=== PATIENT | female | born 1985 | race Caucasian/White ===

== ENCOUNTER 2017-07-10 07:01 | Day surgery (SDC) | payer OTHER ==
--- NOTE | 2017-07-10 07:43 | PCM.PREANE ---
Preanesthetic Assessment - Anesthesia/Transfusion/Family Hx Anesthesia History: Prior Anesthesia Without Reaction Family History of Anesthesia Reaction: No Transfusion History: No Prior Transfusion(s) - Review of Systems General: No Symptoms Pulmonary: No Symptoms Cardiovascular: No Symptoms Gastrointestinal: No Symptoms Neurological: No Symptoms Other: Reports: None - Physical Assessment NPO Status Date: 07/09/17 Height: 1.77 m Weight: 89.358 kg ASA Class: 2 Mental Status: Alert & Oriented x3 Airway Class: Mallampati = 2 Dentition: Reports: Normal Dentition ROM/Head Extension: Full Lungs: Clear to Auscultation, Normal Respiratory Effort Cardiovascular: Regular Rate, Regular Rhythm - Lab Values: Laboratory Last Values WBC 9.57 K/uL (4.0-11.0) 07/09/17 12:43 RBC 4.23 M/uL (4.30-5.90) L 07/09/17 12:43 Hgb 13.1 g/dL (12.0-16.0) 07/09/17 12:43 Hct 37.7 % (36.0-46.0) 07/09/17 12:43 MCV 89.1 fL (80.0-98.0) 07/09/17 12:43 MCH 31.0 pg (27.0-32.0) 07/09/17 12:43 MCHC 34.7 g/dL (31.0-37.0) 07/09/17 12:43 RDW Std Deviation 40.9 fl (28.0-62.0) 07/09/17 12:43 RDW Coeff of Noe 13 % (11.0-15.0) 07/09/17 12:43 Plt Count 231 K/uL (150-400) 07/09/17 12:43 MPV 10.40 fL (7.40-12.00) 07/09/17 12:43 Nucleated RBC % 0.0 /100WBC 07/09/17 12:43 Nucleated RBCs # 0 K/uL 07/09/17 12:43 HCG, Qual NEGATIVE (NEG) 07/09/17 12:43 - Allergies Allergies/Adverse Reactions: Allergies Allergy/AdvReac Type Severity Reaction Status Date / Time No Known Allergies Allergy Verified 07/03/17 11:33 - Anesthesia Plan Pre-Op Medication Ordered: None - Acknowledgements Anesthesia Type Planned: MAC Pt an Appropriate Candidate for the Planned Anesthesia: Yes Alternatives and Risks of Anesthesia Discussed w Pt/Guardian: Yes Pt/Guardian Understands and Agrees with Anesthesia Plan: Yes PreAnesthesia Questionnaire HEENT History: Reports: Other (See Below) Other HEENT History: wears glasses/contacts Cardiovascular History: Reports: Arrhythmia Other Cardiovascular History: 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 Respiratory History: Reports: None Gastrointestinal History: Reports: None Genitourinary History: Reports: None 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 Musculoskeletal History: Reports: None Neurological History: Reports: None Psychiatric History: Reports: None Endocrine/Metabolic History: Reports: Vitamin D Deficiency Hematologic History: Reports: B12 Deficiency Immunologic History: Reports: None Oncologic (Cancer) History: Reports: None Dermatologic History: Reports: None - Past Surgical History GI Surgical History: Reports: Colonoscopy Female Surgical History: Reports: D&C - SUBSTANCE USE Smoking Status *Q: Current Every Day Smoker Tobacco Use Within Last Twelve Months: Cigarettes Recreational Drug Use History: No - HOME MEDS Home Medications: Home Meds Cyanocobalamin (Vitamin B-12) [B-12 Compliance] 1 ml IM ASDIRECTED 07/16/15 [ History] Ergocalciferol (Vitamin D2) [Vitamin D2] 1 cap PO ASDIRECTED 07/16/15 [History] Desogestrel/Ethinyl Estradiol [Apri] 1 tab PO DAILY 07/03/17 [History]
[2017-07-10] MEDS ORDERED: fentaNYL 100 MCG/2 ML SDV ONE ×2 (08:04→08:51)
[2017-07-10] MEDS ORDERED: diphenhydrAMINE 50 MG/ML SDV ONE (08:04)
[2017-07-10] MEDS ORDERED: Dexamethasone 4 MG/ML 5 ML MDV ONE (08:04)
[2017-07-10] MEDS ORDERED: Midazolam 1 MG/ML 2 ML SDV ONE (08:04)
[2017-07-10] MEDS ORDERED: Ondansetron 4 MG/2 ML SDV ONE (08:04)
[2017-07-10] MEDS ORDERED: Propofol 200 MG/20 ML SDV ONE ×2 (08:04→08:55)
[2017-07-10] MEDS ORDERED: Lactated Ringers 1,000 ML IV SCH (08:15)
[2017-07-10] MEDS ORDERED: Ketorolac 30 MG/ML SDV ONE (08:54)
--- NOTE | 2017-07-10 10:26 | PCM.OPNOTE ---
- General Post-Op/Procedure Note Date of Surgery/Procedure: 07/10/17 Operative Procedure(s): LEEP Findings: Transformation entirely seen, mild acetowhite changes. Pre Op Diagnosis: JAJA II Post-Op Diagnosis: Same Anesthesia Technique: MAC Primary Surgeon: Aga Ocasio Anesthesia Provider: Tirso Ramirez [employer] Supervisor: Mariza Castanon Pathology: ectocervix labeled at 12 o'clock, endocervix labeled at 12 o'clock. Fluid Replacement, Intraop: 1,000 EBL in mLs: 20 Complications: None Known. Condition: Good Free Text/Narrative:: Intake & Output 07/09/17 07/10/17 07/10/17 22:59 06:59 14:59 Intake Total 1100 Balance 1100
--- NOTE | 2017-07-10 10:29 | PCM48HPAN ---
Post Anesthesia Note - EVALUATION WITHIN 48HRS OF ANESTHETIC Vital Signs in Normal Range: Yes Patient Participated in Evaluation: Yes Respiratory Function Stable: Yes Airway Patent: Yes Cardiovascular Function Stable: Yes Hydration Status Stable: Yes Pain Control Satisfactory: Yes Nausea and Vomiting Control Satisfactory: Yes Mental Status Recovered: Yes Resp Rate: 18 - COMMENTS/OBSERVATIONS Free Text/Narrative:: no anesthesia problems
[2017-07-10 13:31] VITALS: BP 116/72
--- NOTE | 2017-07-10 17:17 | OR ---
SURGEON: Aga Ocasio M.D. DATE OF PROCEDURE: 07/10/2017 PREOPERATIVE DIAGNOSIS: Cervical intraepithelial neoplasia II. POSTOPERATIVE DIAGNOSIS: Cervical intraepithelial neoplasia II. PROCEDURE: Loop electrode excisional procedure. ANESTHESIA: Cervical block with monitored anesthetic care. ESTIMATED BLOOD LOSS: 20 mL. FLUIDS: 1000 mL crystalloid. FINDINGS: Entire transformation zone was visualized under colposcopy examination. There was mild diffuse acetowhite epithelium. Extensive amount of nabothian cysts and mucus. COMPLICATION: None known. DISPOSITION: Stable to recovery. BRIEF HISTORY: This is a 31-year-old female she presents with an abnormal Pap. Colposcopy in the clinic was performed with findings as JAJA II on cervical biopsy. She was scheduled for loop electrode excisional procedure with risks discussed including bleeding, infection, and weakening of the cervix which could cause cervical incompetence or miscarriage in the future. Understanding these risks, she does desire to proceed. DESCRIPTION OF PROCEDURE: With the patient in dorsal lithotomy position, under adequate IV sedation, the insulated speculum was placed into the vagina and the cervix was examined, treated with dilute acetic acid and examined with the colposcope. Once this was complete, the cervix was then treated with Lugol solution to identify the nonstaining area. A vaginal sidewall retractor was placed with an insulated sidewall retractor and the cervix was grasped with an insulated tenaculum with a setting of 40 pure-cut. The loop electrode was utilized to excise the exocervix which was labeled at 1 o'clock with 0 Polysorb and a smaller loop electrode was utilized to excise a small portion of the endocervix and labeled at 12 o'clock. The base was then cauterized with a ball cautery setting of 60 coag. Monsel's solution was applied. The tenaculum was removed. The tenaculum sites were cauterized. The instruments removed from the vagina. The cervix was hemostatic. Final sponge, needle, and instrument counts were reported as correct. There were no known complications. The patient was transferred to recovery in good condition. WAYNE CONNELL /[id number]
== END 2017-07-10 10:40 | disposition home or self-care (01) ==
LOC: MW.SDS 07:01
PROVIDERS: ATTEND Obstetrics & Gynecology
DX: N87.1 Moderate cervical dysplasia (principal); F17.210 Nicotine dependence, cigarettes, uncomplicated; E55.9 Vitamin D deficiency, unspecified; E53.8 Deficiency of other specified B group vitamins; Z79.890 Hormone replacement therapy
CPT/HCPCS: 36415; 57460; 84703; 85027; J1100; J1200; J1885; J2250; J2405; J3010; J7120; 00940; 88307; J2704

== ENCOUNTER 2017-11-23 20:05 | Emergency (ER) | payer OTHER ==
[2017-11-23] MEDS ORDERED: Diphtheria,Pertussis(Acell),Tetanus Vaccine 0.5 ML Syringe IM ONE (20:17)
[2017-11-23] MEDS ORDERED: Lidocaine 1% 20 ML MDV INJECT ONE (20:17)
[2017-11-23] MEDS ORDERED: Lidocaine/EPINEPHrine/Tetracaine Soln 1 ML TOP ONE (20:17)
[2017-11-23] MEDS ORDERED: Acetaminophen/HYDROcodone 325-5 MG Tab PO ONE (20:17)
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
[2017-11-23] MEDS ORDERED: Lidocaine 1% with EPINEPHrine 1:100,000 20 ML MDV ONE (21:38)
[2017-11-23] MEDS ORDERED: Ondansetron 4 MG Tab.DIS PO ONE (21:58)
[2017-11-23] MEDS ORDERED: Bacitracin Oint 1 GM U/D Packet ONE (22:44)
[2017-11-24 01:01] VITALS: BP 134/78
--- NOTE | 2017-11-26 14:21 | CT ---
EXAM DATE: 11/23/17 PATIENT'S AGE: 32 Patient: GREGORIA CHOW Facility: [place], [place] Site . Site : 1985 Study: CT Head [id number]/13/2018 9:18:30 PM Ordering Physician: Doctor Baird Final Report: INDICATION: Fall. TECHNIQUE: CT head without contrast. COMPARISON: None FINDINGS: CSF spaces: Within normal limits for age. Brain parenchyma: The rucker-white differentiation is normal. No sign of mass, hemorrhage, or midline shift. Skull base and calvarium: The visualized paranasal sinuses and mastoid air cells demonstrate no acute or significant findings. The visualized orbits are grossly unremarkable. No skull fractures. IMPRESSION: Unremarkable noncontrast head CT. Dictated by King Mejia MD @ 11/23/2017 9:26:19 PM Please note that all CT scans at this facility use dose modulation, iterative reconstruction, and/or weight-based dosing when appropriate to reduce radiation dose to as low as reasonably achievable. Dictated by: King Mejia MD @ 11/23/2017 21:26:26 (Electronic Signature) Report Signed by Proxy. [facility] HOSPITALKerri
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
== END 2017-11-23 22:15 | disposition home or self-care (01) ==
LOC: MW.ED 20:05
DX: S81.012A Laceration without foreign body, left knee, initial encounter (principal); S60.812A Abrasion of left wrist, initial encounter; S00.81XA Abrasion of other part of head, initial encounter; S80.212A Abrasion, left knee, initial encounter; Z23 Encounter for immunization; W22.8XXA Striking against or struck by other objects, initial encounter
CPT/HCPCS: 12001; 70450; 73100; 73562; 90471; 90715; 99284; A9270

== ENCOUNTER 2017-12-03 17:41 | Emergency (ER) | payer OTHER ==
[2017-12-03 18:21] VITALS: BP 133/83
== END 2017-12-03 18:48 | disposition home or self-care (01) ==
LOC: MW.ED 17:41
DX: Z53.21 Procedure and treatment not carried out due to patient leaving prior to being seen by health care provider (principal)

== ENCOUNTER 2018-12-04 09:33 | Emergency (ER) | payer OTHER ==
[2018-12-04] MEDS ORDERED: Ketorolac 30 MG/ML SDV IM ONE (10:02)
--- NOTE | 2018-12-04 10:40 | EDM.PDOC ---
<Paulino Felder - Last Filed: 12/04/18 12:33> ED HPI GENERAL MEDICAL PROBLEM - General Chief Complaint: ASSESSMENT SPECIALIST Problem Stated Complaint: PELVIC PAIN Time Seen by Provider: 12/04/18 10:30 - History of Present Illness INITIAL COMMENTS - FREE TEXT/NARRATIVE: I've seen and examined the patient and agree with the above No fever nausea vomiting chills sweats no chest pain shortness breath headache dizziness palpitation no bowel or urine symptoms Therapeutics Tramadol follow-up with gynecology Impression Endometriosis Definitive disposition and diagnosis pending reevaluation and review of above - Related Data Allergies Allergy/AdvReac Type Severity Reaction Status Date / Time No Known Allergies Allergy Verified 12/04/18 09:44 Home Meds: Home Meds Control 11/23/17 [History] Course - Vital Signs Last Recorded V/S: Last Vital Signs Temp 36.1 C 12/04/18 12:45 Pulse 68 12/04/18 12:45 Resp 18 12/04/18 12:45 BP 120/77 12/04/18 12:45 Pulse Ox 99 12/04/18 12:45 - Orders/Labs/Meds Labs: Laboratory Tests 12/04/18 12/04/18 12/04/18 Range/Units 10:20 10:20 10:30 WBC 8.88 (4.0-11.0) K/uL RBC 4.11 L (4.30-5.90) M/uL Hgb 12.8 (12.0-16.0) g/dL Hct 38.0 (36.0-46.0) % MCV 92.5 (80.0-98.0) fL MCH 31.1 (27.0-32.0) pg MCHC 33.7 (31.0-37.0) g/dL RDW Std Deviation 43.4 (28.0-62.0) fl RDW Coeff of Noe 13 (11.0-15.0) % Plt Count 250 (150-400) K/uL MPV 10.70 (7.40-12.00) fL Neut % (Auto) 64.5 (48.0-80.0) % Lymph % (Auto) 29.1 (16.0-40.0) % Wells % (Auto) 5.3 (0.0-15.0) % Eos % (Auto) 1.0 (0.0-7.0) % Baso % (Auto) 0.1 (0.0-1.5) % Neut # (Auto) 5.7 (1.4-5.7) K/uL Lymph # (Auto) 2.6 H (0.6-2.4) K/uL Wells # (Auto) 0.5 (0.0-0.8) K/uL Eos # (Auto) 0.1 (0.0-0.7) K/uL Baso # (Auto) 0.0 (0.0-0.1) K/uL Nucleated RBC % 0.0 /100WBC Nucleated RBCs # 0 K/uL Sodium 138 (136-145) mmol/L Potassium 3.9 (3.5-5.1) mmol/L Chloride 106 (98-107) mmol/L Carbon Dioxide 20.8 L (21.0-32.0) mmol/L BUN 13 (7.0-18.0) mg/dL Creatinine 0.9 (0.6-1.0) mg/dL Est Cr Clr Drug Dosing 97.94 mL/min Estimated GFR (MDRD) > 60.0 ml/min Glucose 99 (74-106) mg/dL Calcium 8.9 (8.5-10.1) mg/dL Total Bilirubin 0.3 (0.2-1.0) mg/dL AST 15 (15-37) IU/L ALT 15 (14-63) IU/L Alkaline Phosphatase 37 L (46-116) U/L Total Protein 6.9 (6.4-8.2) g/dL Albumin 3.7 (3.4-5.0) g/dL Globulin 3.2 (2.6-4.0) g/dL Albumin/Globulin Ratio 1.2 (0.9-1.6) Urine Color YELLOW Urine Appearance CLEAR Urine pH 6.5 (5.0-8.0) Ur Specific [place] 1.015 (1.001-1.035) Urine Protein NEGATIVE (NEGATIVE) mg/dL Urine Glucose (UA) NEGATIVE (NEGATIVE) mg/dL Urine Ketones NEGATIVE (NEGATIVE) mg/dL Urine Occult Blood NEGATIVE (NEGATIVE) Urine Nitrite NEGATIVE (NEGATIVE) Urine Bilirubin NEGATIVE (NEGATIVE) Urine Urobilinogen 0.2 (<2.0) EU/dL Ur Leukocyte Esterase NEGATIVE (NEGATIVE) Urine HCG, Qual (NEGATIVE) Chlamydia/GC Source C.trachomatis RNA (TMA) (Negative) N.gonorrhoeae RNA (TMA) (Negative) 12/04/18 12/04/18 Range/Units 10:30 10:32 WBC (4.0-11.0) K/uL RBC (4.30-5.90) M/uL Hgb (12.0-16.0) g/dL Hct (36.0-46.0) % MCV (80.0-98.0) fL MCH (27.0-32.0) pg MCHC (31.0-37.0) g/dL RDW Std Deviation (28.0-62.0) fl RDW Coeff of Noe (11.0-15.0) % Plt Count (150-400) K/uL MPV (7.40-12.00) fL Neut % (Auto) (48.0-80.0) % Lymph % (Auto) (16.0-40.0) % Wells % (Auto) (0.0-15.0) % Eos % (Auto) (0.0-7.0) % Baso % (Auto) (0.0-1.5) % Neut # (Auto) (1.4-5.7) K/uL Lymph # (Auto) (0.6-2.4) K/uL Wells # (Auto) (0.0-0.8) K/uL Eos # (Auto) (0.0-0.7) K/uL Baso # (Auto) (0.0-0.1) K/uL Nucleated RBC % /100WBC Nucleated RBCs # K/uL Sodium (136-145) mmol/L Potassium (3.5-5.1) mmol/L Chloride (98-107) mmol/L Carbon Dioxide (21.0-32.0) mmol/L BUN (7.0-18.0) mg/dL Creatinine (0.6-1.0) mg/dL Est Cr Clr Drug Dosing mL/min Estimated GFR (MDRD) ml/min Glucose (74-106) mg/dL Calcium (8.5-10.1) mg/dL Total Bilirubin (0.2-1.0) mg/dL AST (15-37) IU/L ALT (14-63) IU/L Alkaline Phosphatase (46-116) U/L Total Protein (6.4-8.2) g/dL Albumin (3.4-5.0) g/dL Globulin (2.6-4.0) g/dL Albumin/Globulin Ratio (0.9-1.6) Urine Color Urine Appearance Urine pH (5.0-8.0) Ur Specific [place] (1.001-1.035) Urine Protein (NEGATIVE) mg/dL Urine Glucose (UA) (NEGATIVE) mg/dL Urine Ketones (NEGATIVE) mg/dL Urine Occult Blood (NEGATIVE) Urine Nitrite (NEGATIVE) Urine Bilirubin (NEGATIVE) Urine Urobilinogen (<2.0) EU/dL Ur Leukocyte Esterase (NEGATIVE) Urine HCG, Qual NEGATIVE (NEGATIVE) Chlamydia/GC Source URINE C.trachomatis RNA (TMA) Negative (Negative) N.gonorrhoeae RNA (TMA) Negative (Negative) Meds: Medications Discontinued Medications Generic Name Dose Route Start Last Admin Trade Name Freq PRN Reason Stop Dose Admin Ketorolac Tromethamine 30 mg 12/04/18 10:02 12/04/18 10:24 Toradol IM 12/04/18 10:03 30 mg ONETIME ONE Administration Departure - Departure Time of Disposition: 12:34 Disposition: Home, Self-Care 01 Condition: Good Clinical Impression: Endometriosis, Pelvic pain - Discharge Information Instructions: Endometritis Referrals: Abel Callejas MD [Primary Care Provider] - Forms: ED Department Discharge Additional Instructions: please follow settlement processor, return to ED as needed as discussed Take medication as prescribed. [facility] [address] [place] [id number] [facility] [address] [place] [id number] The following information is given to patients seen in the emergency department who are being discharged to home. This information is to outline your options for follow-up care. We provide all patients seen in our emergency department with a follow-up referral. The need for follow-up, as well as the timing and circumstances, are variable depending upon the specifics of your emergency department visit. If you don't have a primary care physician on staff, we will provide you with a referral. We always advise you to contact your personal physician following an emergency department visit to inform them of the circumstance of the visit and for follow-up with them and/or the need for any referrals to a consulting specialist. The emergency department will also refer you to a specialist when appropriate. This referral assures that you have the opportunity for follow-up care with a specialist. All of these measure are taken in an effort to provide you with optimal care, which includes your follow-up. Under all circumstances we always encourage you to contact your private physician who remains a resource for coordinating your care. When calling for follow-up care, please make the office aware that this follow-up is from your recent emergency room visit. If for any reason you are refused follow-up, please contact the [facility] emergency department at and asked to speak to the emergency department charge nurse. <Jorge Merlos - Last Filed: 12/05/18 22:18> ED HPI GENERAL MEDICAL PROBLEM - History of Present Illness INITIAL COMMENTS - FREE TEXT/NARRATIVE: 33 y/o female with history of endometriosis who presents today with pelvic pain for the past 1 week on and off during the day. Has been taking ibuprofen, tylenol without significant improvement. Not on her menses. Taking OCPs. No fevers, nausea, vomiting. No dysuria, vaginal discharge. Denies any genial lesions. Sexually active. No history of STI's. pelvic Pain Score (Numeric/FACES): 8 Past Medical History HEENT History: Reports: Other (See Below) Other HEENT History: wears glasses/contacts Cardiovascular History: Reports: Arrhythmia Other Cardiovascular History: 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 Respiratory History: Reports: None Gastrointestinal History: Reports: None Genitourinary History: Reports: None ASSESSMENT SPECIALIST History: Reports: Spontaneous Musculoskeletal History: Reports: None Neurological History: Reports: None Psychiatric History: Reports: None Endocrine/Metabolic History: Reports: Vitamin D Deficiency Hematologic History: Reports: B12 Deficiency Immunologic History: Reports: None Oncologic (Cancer) History: Reports: None Dermatologic History: Reports: None - Infectious Disease History Infectious Disease History: Reports: Chicken Pox - Past Surgical History Head Surgeries/Procedures: Reports: None GI Surgical History: Reports: Colonoscopy Female Surgical History: Reports: D&C Social & Family History - Family History Family Medical History: Noncontributory - Tobacco Use Smoking Status *Q: Current Every Day Smoker Years of Tobacco use: 15 Packs/Tins Daily: 0.5 - Caffeine Use Caffeine Use: Reports: Coffee - Recreational Drug Use Recreational Drug Use: No ED ROS GENERAL - Review of Systems Review Of Systems: ROS reveals no pertinent complaints other than HPI. ED EXAM, RENAL/ - Physical Exam Exam: See Below General Appearance: Alert, WD/WN, No Apparent Distress Respiratory/Chest: No Respiratory Distress, Lungs Clear Cardiovascular: Normal Peripheral Pulses, Regular Rate, Rhythm GI/Abdominal: Normal Bowel Sounds, No Distention, Other (tender in pelvic area. No rebound.). No: Rebound Back Exam: Normal Inspection. No: CVA Tenderness (L), CVA Tenderness (R) Extremities: Normal Inspection, No Pedal Edema Skin Exam: Warm, Dry Course - Vital Signs Text/Narrative:: labs unremarkable. urine bHcG negative. Toradol 30 mg IM once helped somewhat. Still having pressure. Pending pelvic U/S. Departure - Discharge Information *PRESCRIPTION DRUG MONITORING PROGRAM REVIEWED*: Not Applicable *COPY OF PRESCRIPTION DRUG MONITORING REPORT IN PATIENT [place]: Not Applicable
[2018-12-04 11:06] LABS: CHLORIDE,CL 106 mmol/L (98-107); SODIUM,NA 138 mmol/L (136-145)
--- NOTE | 2018-12-04 12:08 | US ---
EXAMINATION: Transvaginal pelvic ultrasound HISTORY: Pain COMPARISON: 03/02/2011 TECHNIQUE: Grayscale, color Doppler, and spectral Doppler imaging obtained. FINDINGS: The uterus is normal in size, contour, and echogenicity without a focal mass. The endometrium stripe thickness is normal. Both the left and right ovaries are normal in size, contour, and echogenicity demonstrating normal color and spectral Doppler flow. No adnexal masses. No significant free pelvic fluid. IMPRESSION: Unremarkable pelvic ultrasound.
[2018-12-04 12:49] VITALS: BP 120/77
== END 2018-12-04 12:46 | disposition home or self-care (01) ==
LOC: MW.ED 09:33
DX: N80.9 Endometriosis, unspecified (principal); F17.210 Nicotine dependence, cigarettes, uncomplicated
CPT/HCPCS: 36415; 76856; 80053; 81003; 81025; 85025; 87491; 87591; 96372; 99284; J1885

== ENCOUNTER 2023-08-31 11:51 | Emergency (ER) | payer OTHER ==
[2023-08-31 12:29] VITALS: BP 154/101; PULSE 107
[2023-08-31 13:57] LABS: APPEARANCE,URINE CLEAR; BILIRUBIN,URINE NEGATIVE (NEGATIVE); COLOR,URINE YELLOW; GLUCOSE,URINE NEGATIVE (NEGATIVE); KETONES,URINE NEGATIVE (NEGATIVE); LEUKOCYTE ESTERASE,URINE NEGATIVE (NEGATIVE); NITRITE,URINE NEGATIVE (NEGATIVE); OCCULT BLOOD,URINE NEGATIVE (NEGATIVE); PROTEIN,URINE NEGATIVE (NEGATIVE); UROBILINOGEN,URINE 0.2 EU/dL (<2.0)
[2023-08-31 14:54] LABS: CANDIDA DNA PROBE NEGATIVE (NEGATIVE); GARDNERELLA DNA PROBE POSITIVE (NEGATIVE); TRICHOMONAS DNA PROBE NEGATIVE (NEGATIVE)
== END 2023-08-31 15:30 | disposition home or self-care (01) ==
LOC: MW.ED 11:51
DX: N76.0 Acute vaginitis (principal); N83.202 Unspecified ovarian cyst, left side; N88.8 Other specified noninflammatory disorders of cervix uteri; Z87.410 Personal history of cervical dysplasia; Z75.8 Other problems related to medical facilities and other health care
CPT/HCPCS: 76830; 76830-26; 81003; 81025; 87480; 87510; 87660; 99283; 99284

== ENCOUNTER 2023-11-15 14:28 | Emergency (ER) | payer OTHER ==
[2023-11-15 16:10] VITALS: BP 129/85; PULSE 71
== END 2023-11-15 17:02 | disposition home or self-care (01) ==
LOC: MW.ED 14:28
DX: S89.92XA Unspecified injury of left lower leg, initial encounter (principal); Z75.8 Other problems related to medical facilities and other health care; X50.1XXA Overexertion from prolonged static or awkward postures, initial encounter; Y93.01 Activity, walking, marching and hiking
CPT/HCPCS: 73562-26-LT; 73562-LT; 99282; 99283

== ENCOUNTER 2023-12-05 08:00 | Day surgery (SDC) | payer OTHER ==
[~2023-12-05 08:00] MED LIST: Albuterol 0.083% 2.5 MG/3 ML Neb Soln NEB PRN; HYDROmorphone 1 MG/ML Syringe IVPUSH PRN; Metoclopramide 10 MG/2 ML SDV IVPUSH PRN; Morphine 2 MG/ML SYRINGE IVPUSH PRN; Naloxone 0.4 MG/ML SDV IVPUSH PRN; Ondansetron 4 MG/2 ML SDV IVPUSH PRN; Ropivacaine 0.5% 5 MG/ML 30 ML SDV ONE; ceFAZolin 2 GM in Sodium Chloride 0.9% 50 ML IV ONE; droPERidol 5 MG/2 ML SDV IVPUSH PRN; fentaNYL 50 MCG/ML SDV IVPUSH PRN
[2023-12-05] MEDS ORDERED: propofoL 100 ML ONE (08:23)
[2023-12-05] MEDS ORDERED: Famotidine 20 MG/2 ML SDV ONE (08:23)
[2023-12-05] MEDS ORDERED: Bupivacaine 0.5%/EPINEPHrine 1:200,000 30 ML SDV ONE (08:25)
[2023-12-05] MEDS ORDERED: fentaNYL 250 MCG/5 ML SDV ONE (08:26)
[2023-12-05] MEDS ORDERED: Ketamine HCL/NACL, ISO-OSM 50 MG/5 ML Syringe ONE (08:26)
[2023-12-05] MEDS: Lactated Ringers 1,000 ML IV SCH (08:37)
[2023-12-05] MEDS: Scopalamine 1mg/3day Transdermal Patch TOP ONE (09:15)
[2023-12-05] MEDS ORDERED: ceFAZolin 2 GM Vial ONE (09:47)
[2023-12-05] MEDS ORDERED: Dexamethasone 4 MG/ML 5 ML MDV ONE (09:51)
[2023-12-05] MEDS ORDERED: Ondansetron 4 MG/2 ML SDV ONE ×2 (09:51→11:14)
[2023-12-05] MEDS ORDERED: Ketorolac 30 MG/ML SDV ONE (09:51)
[2023-12-05] MEDS ORDERED: Magnesium Sulfate (4.06 MEQ/ML) 5 GM/10 ML SDV ONE (09:59)
[2023-12-05] MEDS ORDERED: fentaNYL 100 MCG/2 ML SDV ONE (10:20)
[2023-12-05] MEDS ORDERED: propofoL 50 ML ONE ×2 (10:49→11:09)
[2023-12-05] MEDS ORDERED: HYDROmorphone 2 MG/ML Syringe ONE ×2 (10:50→11:14)
[2023-12-05] MEDS ORDERED: Acetaminophen/oxyCODONE 325-5 MG Tab ONE (13:21)
[2023-12-05] MEDS ORDERED: Desflurane 240 ML Bottle ONE (13:22)
[2023-12-05] MEDS: Acetaminophen/oxyCODONE 325-5 MG Tab PO PRN (13:23)
[2023-12-05 14:09] VITALS: BP 113/71; PULSE 68
== END 2023-12-05 14:30 | disposition home or self-care (01) ==
LOC: MW.SDS 08:00
PROVIDERS: ATTEND Orthopaedic Surgery
DX: S83.512A Sprain of anterior cruciate ligament of left knee, initial encounter (principal); S80.252A Superficial foreign body, left knee, initial encounter; M22.42 Chondromalacia patellae, left knee; D64.9 Anemia, unspecified; E66.9 Obesity, unspecified; F41.9 Anxiety disorder, unspecified; F17.210 Nicotine dependence, cigarettes, uncomplicated; Z68.31 Body mass index [BMI] 31.0-31.9, adult
CPT/HCPCS: 29888; 81025; A9270; J0131; J0690; J1100; J1170; J1885; J2405; J2704; J2795; J3010; J3475; J3490; J7120; 01400; 64447; C1713

== ENCOUNTER 2023-12-05 23:54 | Emergency (ER) | payer OTHER ==
[2023-12-06] MEDS ORDERED: Sodium Chloride 0.9% 2.5 ML Syringe FLUSH PRN (00:09)
[2023-12-06] MEDS ORDERED: Sodium Chloride 0.9% 10 ML Syringe FLUSH PRN (00:09)
[2023-12-06 00:21] LABS: BASOPHILS ABSOLUTE AUTO 0.02 K/uL (0.00-0.20); BASOPHILS PERCENT AUTO 0.1 % (0.0-1.0); HEMOGLOBIN 13.3 g/dL (12.0-16.0); IMMATURE GRAN ABSOLUTE AUTO 0.08 K/uL (0.00-0.05); IMMATURE GRAN PERCENT AUTO 0.4 % (0.0-0.4); LYMPHOCYTES ABSOLUTE AUTO 2.02 K/uL (1.00-4.80); LYMPHOCYTES PERCENT AUTO 9.9 % (24.0-44.0); MEAN CORPUSCULAR HEMOGLOBIN 31.4 pg (28.0-32.0); MEAN CORPUSCULAR VOLUME 89.8 fL (83.0-99.0); MEAN PLATELET VOLUME 10.3 fL (9.4-12.3); MONOCYTES ABSOLUTE AUTO 1.41 K/uL (0.00-0.80); MONOCYTES PERCENT AUTO 6.9 % (0.0-8.0); NEUTROPHILS PERCENT AUTO 82.7 % (41.0-71.0); PLATELET COUNT,PLT 316 K/uL (150-400); RED BLOOD CELL COUNT 4.23 M/uL (4.10-5.30); WHITE BLOOD CELL COUNT,WBC 20.33 K/uL (3.9-11.3)
[2023-12-06 00:36] LABS: D-DIMER QUANTITATIVE 0.48 mg/L FEU (0.00-0.50); INR 1.01 (0.86-1.11)
[2023-12-06 00:50] LABS: A/G RATIO 1.2 (0.9-1.6); ALBUMIN 3.9 g/dL (3.4-5.0); BILIRUBIN TOTAL 0.2 mg/dL (0.2-1.0); CALCIUM 9.3 mg/dL (8.5-10.1); CARBON DIOXIDE,CO2 21.1 mmol/L (21.0-32.0); CREATININE 1.1 mg/dL (0.6-1.0); EST CRCL DRUG DOSING (CG) 76.46 mL/min; POTASSIUM,K 4.5 mmol/L (3.5-5.1); PROTEIN TOTAL,TP 7.1 g/dL (6.4-8.2)
[2023-12-06] MEDS: Morphine 4 MG/ML Syringe IVPUSH ONE (01:32)
[2023-12-06] MEDS: Ondansetron 4 MG/2 ML SDV IVPUSH ONE (01:32)
[2023-12-06] MEDS: Famotidine 20 MG/2 ML SDV IVPUSH ONE (01:33)
[2023-12-06 02:04] VITALS: BP 116/72; PULSE 67
== END 2023-12-06 02:00 | disposition home or self-care (01) ==
LOC: MW.ED 23:54
DX: R07.2 Precordial pain (principal); E66.9 Obesity, unspecified; Z86.16 Personal history of COVID-19; Z75.8 Other problems related to medical facilities and other health care
CPT/HCPCS: 36415; 71045; 80053; 84484; 85025; 85379; 85610; 93005; 96374; 99285; J3490